=== PATIENT | female | born 1930 | race Caucasian/White ===

== ENCOUNTER 2016-02-25 13:56 | Emergency (ER) | payer MEDICARE ==
[~2016-02-25] VITALS: Ht 152.4 cm; Wt 60.0 kg
[~2016-02-25 13:56] MED LIST: AC325T PO; ALBU2.5V12 INH; ALEN70TA47 PO; AML2.5T PO; AML5T PO; APIX2.5T2 PO; ASPI-479 PO; ASPI-586 PO; ATOR20TA PO; AZTH250C PO; BENZ-13 PO; BENZ-22 PO; BISO1TAB3 PO; BISO1TAB6 PO; CALTRATE 600 +1 EACH PO; CEFD300C PO; CHOL10002 PO; CRV6.25T PO; DGX.125T PO; FERR-74 PO; FLUT16SP NSEACH; FLUT9.9S NS; FRSM20T PO; FURO40TA4 PO; GUAI600T45 PO; HYDR-3702 PO; HYDR-3811 PO; LORA10TA7 PO; MAGN250T PO; MAGN400O7 PO; METF500T4 PO; MULT1TAB PO; POLYETHYLENE GL17 GM PO; POTA10CA2 PO; PSYL1PAC10 PO; RANI150T11 PO; SIMV40TA2 PO; TRL10C90 TOP; UBID100C8 PO; WARF2TAB PO; [UNRECOGNIZED DRUG - CODE] PO
--- OUTSIDE RECORDS SUMMARY | 2016-02-25 14:01 | XMS REPORT | Referral Summary ---
Author Author [facility] Organization [facility] Address Unknown Phone Unavailable Encounter [facility] [id number] Date(s): 03/18/15 - 03/22/15 [facility] [address] [place] [address] Discharge Disposition: 03-Nursing Home Facility Attending Physician: Antonio Johnson MD Admitting Physician: Antonio Johnson MD Vital Signs Most recent to 1 oldest [Reference Range]: Temperature Oral 37 degC [35.8-37.3 degC] (03/22/15 11:47 AM) Temperature Skin 36.2 degC [36-37 degC] (03/18/15 1:26 PM) Temperature Temporal 36.0 degC Artery [36.3-37.8 *LOW* degC] (03/18/15 5:15 PM) Apical Heart Rate 105 bpm [60-100 bpm] *HI* (03/22/15 12:57 PM) Peripheral Pulse 112 bpm Rate [60-100 bpm] *HI* (03/22/15 11:47 AM) Heart Rate Monitored 95 bpm [60-100 bpm] (03/20/15 8:48 AM) Respiratory Rate 17 br/min [14-20 br/min] (03/22/15 11:47 AM) Blood Pressure 152/71 mmHg [90-140/60-90 mmHg] *HI* (03/22/15 11:47 AM) Mean Arterial 88 mmHg Pressure, Cuff (03/18/15 5:15 PM) SpO2 92 % (03/22/15 11:47 AM) Problem List Condition Effective Dates Status Health Status Informant Acute Active pain(Confirmed) Arthritis(Confirmed) Active patient At risk of pressure Active sore(Confirmed) Afib(Confirmed) Active patient Arrhythmia(Confirmed Active patient ) HTN Active patient (hypertension)(Confi rmed) [place] (myocardial Active patient infarction)(Confirme d) Osteoporosis(Confirm Active patient ed) PVD (peripheral Active patient vascular disease)(Confirmed) Tissue perfusion Active alteration(Confirmed )1 1Problem added automatically by system based on initiation of Tissue Perfusion Cerebral Plan of Care Allergies, Adverse Reactions, Alerts No Known Allergies Medications acetaminophen 325 mg oral tablet 650 mg 2 tabs, Oral, q4hr, Pain Mild (1-3), 0 Refill(s) Start Date: 03/20/15 Status: OrderedamLODIPine 2.5 mg, Oral, Daily, 0 Refill(s) Start Date: 03/18/15 Status: Orderedaspirin 81 mg oral delayed release tablet 162 mg 2 tabs, Oral, Daily, 0 Refill(s) Start Date: 03/18/15 Status: Orderedatorvastatin 20 mg oral tablet 20 mg 1 tabs, Oral, Bedtime (once a day), # 30 tabs, 0 Refill(s) Start Date: 03/18/15 Status: Orderedbenzonatate 100 mg oral capsule 100 mg 1 caps, Oral, TID, as needed for cough Start Date: 03/18/15 Status: Orderedbisoprolol-hydrochlorothiazide 5 mg-6.25 mg oral tablet 1 tabs, Oral, Daily, # 30 tabs, 0 Refill(s) Start Date: 03/18/15 Status: OrderedClaritin 10 mg, Oral, Daily, 0 Refill(s) Start Date: 03/18/15 Status: Ordereddigoxin 125 mcg, Oral, Daily, 0 Refill(s) Start Date: 03/18/15 Status: Orderedferrous sulfate 325 mg (65 mg elemental iron) oral delayed release tablet 325 mg 1 tabs, Oral, BID, for 30 days post hospital discharge with food, 0 Refill(s) Start Date: 03/20/15 Status: OrderedFlonase 50 mcg/inh nasal spray 1 sprays, Nasal, qPM, # 16 g, 0 Refill(s) Start Date: 03/18/15 Status: OrderedmetFORMIN 500 mg oral tablet 500 mg 1 tabs, Oral, qAM, # 180 tabs, 0 Refill(s) Start Date: 03/18/15 Status: OrderedNorco 5 mg-325 mg oral tablet 1-2 tabs, Oral, q4hr, Pain Moderate (4-6), not to exceed 8 tablets/24 hours; give with food to prevent nausea, # 30 tabs, 0 Refill(s) Start Date: 03/20/15 Stop Date: 04/20/15 Status: OrderedXarelto 10 mg oral tablet 10 mg 1 tabs, Oral, Daily, give daily at 9:00 AM for 20 days post hospital discharge for DVT prophylaxis, 0 Refill(s) Start Date: 03/20/15 Status: OrderedZantac 150 mg, Oral, Daily, 0 Refill(s) Start Date: 03/18/15 Status: Ordered Results Hematology Most recent to 1 oldest [Reference Range]: WBC [4.8-10.8 15.0 10*3/uL 10*3/uL] *HI* (03/22/15 8:45 AM) RBC [4.00-5.20] 2.85 *LOW* (03/22/15 8:45 AM) Hgb [12.0-16.0 8.0 gm/dL gm/dL] *LOW* (03/22/15 8:45 AM) Hct [37.0-47.0 %] 25.0 % *LOW* (03/22/15 8:45 AM) MCV [82.0-99.0 fL] 87.7 fL (03/22/15 8:45 AM) MCH [27.0-32.0 pg] 28.1 pg (03/22/15 8:45 AM) MCHC [32.0-36.0 32.0 gm/dL gm/dL] (03/22/15 8:45 AM) RDW [11.5-14.5 %] 15.5 % *HI* (03/22/15 8:45 AM) Platelet [150-400 177 10*3/uL 10*3/uL] (03/22/15 8:45 AM) MPV [9.4-12.4 fL] 11.1 fL (03/22/15 8:45 AM) Immature 0.3 % Granulocytes (03/22/15 8:45 AM) [0.0-1.0 %] Neutrophils [51-75 61 % %] (03/22/15 8:45 AM) [place] Man [0-8 %] 1 % (03/18/15 10:35 AM) [place] Man [0-1 %] 1 % (03/18/15 10:35 AM) Lymphocytes [20-46 10 % %] *LOW* (03/22/15 8:45 AM) Monocytes [4-11 %] 25 % *HI* (03/22/15 8:45 AM) Eosinophils [0-4 %] 4 % (03/22/15 8:45 AM) Basophils [0-2 %] 0 % (03/22/15 8:45 AM) Neutro Absolute 9.11 10*3 [1.90-7.00 10*3] *HI* (03/22/15 8:45 AM) Lymph Absolute 1.51 10*3 [0.80-3.30 10*3] (03/22/15 8:45 AM) [place] Absolute 3.72 10*3 [0.30-1.00 10*3] *HI* (03/22/15 8:45 AM) Eos Absolute 0.56 10*3 [0.00-0.50 10*3] *HI* (03/22/15 8:45 AM) Baso Absolute 0.04 10*3 [0.00-0.20 10*3] (03/22/15 8:45 AM) Nucleated RBC 0.0 /100 WBC Automated [0 /100 (03/22/15 8:45 AM) WBC] Differential Manual *ABN* (03/18/15 10:35 AM) Chemistry Most recent to 1 oldest [Reference Range]: Sodium Lvl [136-144 135 mEq/L mEq/L] *LOW* (03/22/15 8:45 AM) Potassium Lvl 3.7 mEq/L [3.6-5.1 mEq/L] (03/22/15 8:45 AM) Chloride [99-109 105 mEq/L mEq/L] (03/22/15 8:45 AM) CO2 [22-32 mEq/L] 24 mEq/L (03/22/15 8:45 AM) AGAP [3-20] 6 (03/22/15 8:45 AM) BUN [4-20 mg/dL] 10 mg/dL (03/22/15 8:45 AM) Glucose Lvl [70-100 167 mg/dL mg/dL] *HI* (03/22/15 8:45 AM) Creatinine Lvl 0.70 mg/dL [0.44-1.03 mg/dL] (03/22/15 8:45 AM) eGFR [>60] >60 1 (03/22/15 8:45 AM) Calcium Lvl 8.1 mg/dL [8.6-10.0 mg/dL] *LOW* (03/22/15 8:45 AM) Albumin Lvl [3.5-4.8 2.9 gm/dL gm/dL] *LOW* (03/22/15 8:45 AM) Total Protein 5.4 gm/dL [6.1-7.9 gm/dL] *LOW* (03/22/15 8:45 AM) Globulin [1.9-4.3 2.5 gm/dL gm/dL] (03/22/15 8:45 AM) ALT [14-54 U/L] 15 U/L (03/22/15 8:45 AM) AST [15-41 U/L] 18 U/L (03/22/15 8:45 AM) Alk Phos [26-104 62 U/L U/L] (03/22/15 8:45 AM) Bili Total [0.2-1.2 0.8 mg/dL 2 mg/dL] (03/22/15 8:45 AM) Blood Glucose, 205 mg/dL Capillary [74-106 *HI* mg/dL] (03/22/15 12:57 PM) Hgb A1c [4.1-5.6 %] 7.1 % *HI* (03/19/15 6:03 AM) eAvg Glucose 157.1 mg/dL (03/19/15 6:03 AM) 1Result Comment: Multiply eGFR results by 1.21 for race.2Result Comment: Naproxen, specifically the metabolite O-desmethylnaproxen, may cause spurious elevation in Total Bilirubin levels.Blood Bank Results Most recent to 1 oldest [Reference Range]: ABO/Rh A NEG (03/21/15 8:39 AM) Antibody Screen Tube NEG (03/21/15 8:39 AM) Immunizations No data available for this section Procedures Procedure Date Related Diagnosis Body Site Open Reduction Internal Fixation Hip (Left)1 03/18/15 Coronary artery bypass grafts x 5 1auto-populated from documented surgical case Social History Social History Type Response Smoking Status Never smoker Assessment and Plan No data available for this section
[2016-02-25 14:51] LABS: MEAN CORPUSCULAR HEMOGLOBIN 29.4 PG (26.0-34.0); MEAN CORPUSCULAR HGB CONC 32.5 g/dL (31.0-37.0); MEAN CORPUSCULAR VOLUME 90 FL (80-100); MEAN PLATELET VOLUME 10.9 FL (6.0-9.5); PLATELET COUNT 162 10^3uL (150-450); WHITE BLOOD COUNT 9.03 10^3uL (4.0-11.0)
[2016-02-25 14:57] LABS: ALBUMIN 4.5 g/dL (3.4-5.0); ANION GAP 15.6 MEQ/L (3-15); CALCULATED IONIZED CALCIUM 4.3 mg/dL (3.8-4.6); TOTAL PROTEIN 6.9 g/dL (6.4-8.5)
[2016-02-25] MEDS ORDERED: ASPI-860 PO (15:00)
[2016-02-25] MEDS ORDERED: PRED10TA PO (15:00)
[2016-02-25] MEDS ORDERED: CARV25TA30 PO (15:00)
[2016-02-25] MEDS ORDERED: FURO40TA4 PO (15:00)
[2016-02-25] MEDS ORDERED: BENZ-13 PO (15:00)
[2016-02-25] MEDS ORDERED: METF500T4 PO (15:00)
[2016-02-25] MEDS ORDERED: CARV12.5 PO (15:00)
[2016-02-25] MEDS ORDERED: LORA-714 PO (15:00)
[2016-02-25 15:40] LABS: BAND NEUTROPHILS % 0 % (0-6); EOSINOPHILS % 4 % (0-4); LYMPHOCYTES # 1.4 #; MONOCYTES % 22 % (3-11); RBC MORPH NORMAL (NORMAL); SEGMENTED NEUTROPHILS % 59 % (51-67); TOTAL CELLS COUNTED 100
--- NOTE | 2016-02-25 16:22 | Diagnostic Imaging Report ---
INDICATION: 10 hours chest pain. COMPARISON: 11/06/2015. FINDINGS: There is cardiomegaly, mild and unchanged; however, prominence of central pulmonary vascularity as well as thickening of the central interstitium and airways has progressed. There is air trapping and COPD superimposed and chronic. No effusion or pneumothorax. IMPRESSION: Cardiomegaly with increased central vascular congestion. There is suggestion of some perihilar edema as well as mild perihilar bronchial thickening. Dictated by: Dictated on workstation # [id number]
[2016-02-25 16:52] VITALS: BP 108/78
== END 2016-02-25 16:35 | disposition home or self-care (01) ==
LOC: ED 13:58
DX: R07.9 Chest pain, unspecified (principal)
CPT/HCPCS: 36415; 71010; 80053; 84484; 85025; 93005; 93010; 99282; 99285

== ENCOUNTER → 2016-03-03 | Outpatient (REF) | payer MEDICARE ==
[~2016-03-03] MED LIST changes: +ASPI-860 PO; +CARV12.5 PO; +CARV25TA30 PO; +LORA-714 PO; +PRED10TA PO
[2016-03-03 12:02] LABS: MEAN CORPUSCULAR HEMOGLOBIN 29.7 PG (26.0-34.0); MEAN CORPUSCULAR HGB CONC 32.6 g/dL (31.0-37.0); MEAN CORPUSCULAR VOLUME 91 FL (80-100); MEAN PLATELET VOLUME 11.5 FL (6.0-9.5); PLATELET COUNT 157 10^3uL (150-450); WHITE BLOOD COUNT 7.16 10^3uL (4.0-11.0)
[2016-03-03 12:04] LABS: BAND NEUTROPHILS % 1 % (0-6); EOSINOPHILS % 4 % (0-4); LYMPHOCYTES # 0.5 #; MONOCYTES # 0.8 #; MONOCYTES % 12 % (3-11); RBC MORPH NORMAL (NORMAL); SEGMENTED NEUTROPHILS % 76 % (51-67); TOTAL CELLS COUNTED 100
[2016-03-03 12:10] LABS: ANION GAP 16.9 MEQ/L (3-15)
== END ==
LOC: LAB 11:48
PROVIDERS: ATTEND Internal Medicine
DX: D64.9 Anemia, unspecified (principal); I50.9 Heart failure, unspecified
CPT/HCPCS: 80048; 85007; 85027

== ENCOUNTER → 2016-04-10 | Outpatient (CLI) | payer MEDICARE | LOC: RAD 08:54 | PROVIDERS: ATTEND Internal Medicine Cardiovascular Disease | DX: I25.5 Ischemic cardiomyopathy (principal); I48.0 Paroxysmal atrial fibrillation | CPT/HCPCS: 93225; 93306 ==

== ENCOUNTER → 2016-05-19 | Outpatient (REF) | payer MEDICARE ==
[2016-05-19 12:23] LABS: MEAN CORPUSCULAR HEMOGLOBIN 30.4 PG (26.0-34.0); MEAN CORPUSCULAR HGB CONC 32.7 g/dL (31.0-37.0); MEAN CORPUSCULAR VOLUME 93 FL (80-100); MEAN PLATELET VOLUME 11.5 FL (6.0-9.5); PLATELET COUNT 138 10^3uL (150-450); WHITE BLOOD COUNT 7.63 10^3uL (4.0-11.0)
[2016-05-19 12:42] LABS: ALBUMIN 4.4 g/dL (3.4-5.0); ANION GAP 16.1 MEQ/L (3-15); CALCULATED IONIZED CALCIUM 4.3 mg/dL (3.8-4.6); MAGNESIUM* 2.2 mg/dL (1.6-2.3); TOTAL PROTEIN 6.8 g/dL (6.4-8.5)
[2016-05-19 13:11] LABS: ERYTHROCYTE SEDIMENTATION RT* 7 mm/hr (0-23)
[2016-05-19 13:16] LABS: SEGMENTED NEUTROPHILS % 52 % (51-67)
[2016-05-19 13:17] LABS: BAND NEUTROPHILS % 0 % (0-6); EOSINOPHILS % 5 % (0-4); MONOCYTES # 2.1 #; MONOCYTES % 30 % (3-11); RBC MORPH NORMAL (NORMAL); TOTAL CELLS COUNTED 100
== END ==
LOC: LAB 12:03
PROVIDERS: ATTEND Internal Medicine
DX: I48.2 Chronic atrial fibrillation (principal); I25.10 Atherosclerotic heart disease of native coronary artery without angina pectoris; R53.83 Other fatigue
CPT/HCPCS: 80053; 82550; 83735; 84443; 85025; 85652; 86140